=== PATIENT | female | born 1990 | race Caucasian/White ===

== ENCOUNTER 2020-11-18 10:02 | Outpatient (REF) | payer BC, SELFPAY ==
--- NOTE | 2020-11-18 09:00 | PAPFT_PTH ---
PATIENT: Maya Gomez LOC: [facility] U#:[id number] AGE/SX: 30/F ROOM: RE11/18/[address]: Ana Maria Brasher APRN : 1990 BED: DIS: 11/18/2020 SPEC #: [id number] RECD: 11/18/20 13:07 STATUS: ARETHA HOPIKNS #: [id number] JAZLYN: 11/18/20 09:[address]: Ana Maria Brasher DEPT: [facility] Cytology RECD BY: Araceli Naranjo Tissues: 1 - CX/ENDOCX FOR PAP SMEARS Procedures: PAP THIN PREP/[facility] Screening Comments: [id number]
== END 2020-11-18 10:22 ==
LOC: LBN 10:02
PROVIDERS: PCP Nurse Practitioner; Visit Provider Nurse Practitioner
DX: Z12.4 Encounter for screening for malignant neoplasm of cervix (principal)
CPT/HCPCS: 88142

== ENCOUNTER 2022-05-11 18:46 | Outpatient (REF) | payer BC, SELFPAY ==
[2022-05-13 14:56] LABS: Chlamydia Result Negative (Negative); GC Result Negative (Negative)
== END 2022-05-11 18:47 | disposition home or self-care (01) ==
LOC: LBN 18:46
PROVIDERS: PCP Nurse Practitioner; Visit Provider Obstetrics & Gynecology
DX: Z11.3 Encounter for screening for infections with a predominantly sexual mode of transmission (principal)
CPT/HCPCS: 87491; 87591